=== PATIENT | male | born 1985 | race Caucasian/White ===

== ENCOUNTER 2018-04-17 17:57 | Emergency (ER) | payer SELFPAY ==
[2018-04-17 18:06] VITALS: BP 125/88
[2018-04-17] MEDS ORDERED: Acetaminophen/HYDROcodone 325-5 MG Tab PO ONE (18:47)
[2018-04-17] MEDS ORDERED: Lidocaine 1% 50 ML MDV INJECT ONE (18:48)
--- NOTE | 2018-04-17 19:21 | EDM.PDOC ---
ED HPI GENERAL MEDICAL PROBLEM - General Chief Complaint: Laceration Stated Complaint: FINGER LAC Time Seen by Provider: 04/17/18 18:37 Source of Information: Reports: Patient, RN Notes Reviewed - History of Present Illness INITIAL COMMENTS - FREE TEXT/NARRATIVE: Pt states he was sitting on a glass counter or display case, it broke, he fell, his only injury is glass lac to distal R small finger, moderate bleeding. Unsure of last tetanus. Treatments COURT ADMINISTRATOR: Reports: Dressing(s) right pinkie Pain Score (Numeric/FACES): 10 - Related Data Allergies Allergy/AdvReac Type Severity Reaction Status Date / Time sulfamethoxazole Allergy Paralysis Verified 04/17/18 18:06 [From Bactrim] trimethoprim [From Bactrim] Allergy Paralysis Verified 04/17/18 18:06 Home Meds: Home Meds ClonazePAM [KlonoPIN] 0.5 mg PO TID PRN 04/17/18 [History] Escitalopram [Lexapro] 10 mg PO DAILY 04/17/18 [History] Past Medical History - Past Health History Medical/Surgical History: Denies Medical/Surgical History Psychiatric History: Reports: Anxiety Social & Family History - Family History Family Medical History: Noncontributory - Tobacco Use Smoking Status *Q: Current Every Day Smoker Years of Tobacco use: 5 Packs/Tins Daily: 0.1 - Caffeine Use Caffeine Use: Reports: Tea - Recreational Drug Use Recreational Drug Use: No ED ROS GENERAL - Review of Systems Review Of Systems: See Below Constitutional: Reports: No Symptoms HEENT: Reports: No Symptoms Respiratory: Denies: Shortness of Breath Cardiovascular: Denies: Chest Pain GI/Abdominal: Denies: Abdominal Pain, Nausea, Vomiting Musculoskeletal: Reports: Joint Pain (distal small finger), Other (lac injury distal R small finger) Neurological: Reports: Numbness (distal tip of finger is numb on the side of the lac injury) ED EXAM, SKIN/RASH Exam: See Below General Appearance: Alert, Anxious Head: Atraumatic Neck: Supple Respiratory/Chest: No Respiratory Distress Extremities: Other (3 cm curved flap laceration ulnar aspect distal small finger , moderately deep, localized swelling, no glass visible or palpable) Neurological: Alert, Other (no motor deficit) Skin: Warm, Dry, Normal Color ED SKIN PROCEDURES - Laceration/Wound Repair Right Distal Digit - 5th (Baby) Lac/Wound length In cm: 3 Appearance: Other (Curved flat configuration, 3 cm total length) Anesthetic Type: Local Local Anesthesia - Lidocaine (Xylocaine): 1% Plain Exploration/Debridement/Repair: Wound Explored Suture Size: 3-0 # of Sutures: 10 Course - Vital Signs Last Recorded V/S: Last Vital Signs Temp 97.7 F 04/17/18 18:03 Pulse 108 H 04/17/18 18:03 Resp 18 04/17/18 18:03 BP 125/88 04/17/18 18:03 Pulse Ox 98 04/17/18 18:03 - Orders/Labs/Meds Meds: Medications Discontinued Medications Generic Name Dose Route Start Last Admin Trade Name Freq PRN Reason Stop Dose Admin Hydrocodone Bitart/Acetaminophen 1 tab 04/17/18 18:47 04/17/18 19:03 [place] 325-5 Mg PO 04/17/18 18:48 1 tab ONETIME ONE Administration Lidocaine HCl 50 ml 04/17/18 18:48 04/17/18 19:04 Xylocaine 1% INJECT 04/17/18 18:49 50 ml ONETIME ONE Administration - Re-Assessments/Exams Free Text/Narrative Re-Assessment/Exam: 04/17/18 20:12 X-rays of finger do not show any fracture or visible foreign body Departure - Departure Time of Disposition: 19:20 Disposition: Home, Self-Care 01 Preliminary Cause of *Q: Sepsis & Multi System Organ Failure Clinical Impression: Finger laceration Qualifiers: Encounter type: initial encounter Finger: little finger Damage to nail status: unspecified Foreign body presence: without foreign body Laterality: right Qualified Code(s): S61.216A - Laceration without foreign body of right little finger without damage to nail, initial encounter - Discharge Information Instructions: Laceration Care, Adult Referrals: PCP,None [Primary Care Provider] - Forms: ED Department Discharge Additional Instructions: Laceration care instructions, stitches out in about 10 days, have rechecked any sign of infection, if you choose to have these taken out at her [facility] medical clinic call [phone] for appointment
--- NOTE | 2018-04-18 07:58 | CR ---
Right hand: Three views of the right hand were obtained. Comparison: No prior hand exam. Fingers are held in flexion slightly limiting interpretation. Old ununited fracture is noted within the tip of the ulnar styloid process. Joint spaces are preserved. No discrete fracture, dislocation or other bony abnormality is seen. Impression: 1. Slightly limited study as noted above. Nothing acute is definitely appreciated. Diagnostic code #2
== END 2018-04-17 20:24 | disposition home or self-care (01) ==
LOC: JD.ED 17:57
DX: S61.216A Laceration without foreign body of right little finger without damage to nail, initial encounter (principal); F41.9 Anxiety disorder, unspecified; F17.290 Nicotine dependence, other tobacco product, uncomplicated; Z79.899 Other long term (current) drug therapy; Z88.2 Allergy status to sulfonamides; Z88.8 Allergy status to other drugs, medicaments and biological substances; W18.02XA Striking against glass with subsequent fall, initial encounter; Y92.89 Other specified places as the place of occurrence of the external cause
CPT/HCPCS: 12002; 73130; 99283; A9270

== ENCOUNTER 2018-07-09 12:52 | Emergency (ER) | payer SELFPAY ==
[2018-07-09 13:01] VITALS: BP 122/87
[2018-07-09] MEDS ORDERED: Metoclopramide 10 MG/2 ML SDV IVPUSH ONE (13:14)
[2018-07-09] MEDS ORDERED: HYDROmorphone 1 MG/ML Syringe IVPUSH ONE (13:14)
[2018-07-09] MEDS ORDERED: Sodium Chloride 0.9% 1,000 ML IV SCH (13:15)
[2018-07-09] MEDS ORDERED: Ketorolac 30 MG/ML SDV IVPUSH ONE (13:15)
--- NOTE | 2018-07-09 13:19 | EDM.PDOC ---
ED HPI GENERAL MEDICAL PROBLEM - General Chief Complaint: Genitourinary Problem Stated Complaint: POSSIBLE KIDNEY STONE Time Seen by Provider: 07/09/18 13:14 Source of Information: Reports: Patient History Limitations: Reports: No Limitations - History of Present Illness INITIAL COMMENTS - FREE TEXT/NARRATIVE: 33-year-old male presents to the ED with acute onset of severe right flank pain that awoke him from sleep about 2-1/2 hours ago. Associated nausea without vomiting. Patient has a history of kidney stones last one was maybe 3 years ago. The right side was affected. Current pain is mostly in his right flank and is slightly coming into the right upper quadrant of the abdomen. No radiation down to the groin or testicle. Pain is constant with a colicky component. Pain is 10 out of 10. He is diaphoretic from the severity of the pain. Onset: Today Onset Date: 07/09/18 Onset Time: 11:00 Duration: Hour(s): Location: Reports: Back Quality: Reports: Ache (Severe right flank pain with associated nausea), Pressure, Throbbing, Other (Colicky component to the pain) Severity: Severe Improves with: Reports: None (10 out of 10) Worsens with: Reports: None Context: Reports: Other (Past history of renal lithiasis.). Denies: Activity, Exercise (No position is comfortable), Lifting, Sick Contact, Trauma Associated Symptoms: Reports: Diaphoresis (Nausea without vomiting), Nausea/ Vomiting, Other Treatments MEDICAL ART THERAPIST: Reports: Other (see below) (Feeling of need to void but unable to do so) Right Flank Pain Score (Numeric/FACES): 8 - Related Data Allergies Allergy/AdvReac Type Severity Reaction Status Date / Time sulfamethoxazole Allergy Paralysis Verified 07/09/18 12:57 [From Bactrim] trimethoprim [From Bactrim] Allergy Paralysis Verified 07/09/18 12:57 Home Meds: Home Meds Ondansetron [Zofran] 4 mg BUCCAL Q6H PRN #5 tab 07/09/18 [Rx] oxyCODONE HCl/Acetaminophen [Percocet 5-325 mg Tablet] 1 - 2 each PO Q4H PRN # 12 tablet 07/09/18 [Rx] Past Medical History - Past Health History Medical/Surgical History: Denies Medical/Surgical History Genitourinary History: Reports: Renal Calculus (On of these 2 previous occasions ) Psychiatric History: Reports: Anxiety Social & Family History - Family History Family Medical History: Noncontributory - Caffeine Use Caffeine Use: Reports: Tea - Living Situation & Occupation Living situation: Reports: Single Occupation: Employed (Self-employed) ED ROS GENERAL - Review of Systems Review Of Systems: See Below Constitutional: Reports: Diaphoresis, Decreased Appetite. Denies: Fever, Chills , Malaise, Weakness, Fatigue, Weight Loss HEENT: Reports: No Symptoms Respiratory: Reports: No Symptoms Cardiovascular: Reports: No Symptoms Endocrine: Reports: No Symptoms GI/Abdominal: Reports: Nausea. Denies: Vomiting : Reports: Other (Urine was a little darker this morning. Could tell if there was blood or not) Musculoskeletal: Reports: Back Pain (Severe right flank pain) Skin: Reports: No Symptoms Neurological: Reports: No Symptoms Psychiatric: Reports: No Symptoms Hematologic/Lymphatic: Reports: No Symptoms Immunologic: Reports: No Symptoms ED EXAM, RENAL/ - Physical Exam Exam: See Below Exam Limited By: No Limitations General Appearance: Alert, WD/WN, Severe Distress (He is writhing back and forth on the bed due to the severity of the pain.) Eye Exam: Bilateral Eye: Normal Inspection Throat/Mouth: Normal Inspection, Normal Lips, Other Neck: Normal Inspection, Supple, Non-Tender, Full Range of Motion. No: Lymphadenopathy (L), Lymphadenopathy (R) Respiratory/Chest: Lungs Clear, Normal Breath Sounds, No Accessory Muscle Use, Respiratory Distress Cardiovascular: Normal Peripheral Pulses, Regular Rate, Rhythm, No Edema, No Gallop, No Murmur, No Rub GI/Abdominal: Tender, Abnormal Bowel Sounds (Bowel sounds are absent.). No: Guarding, Rigid (Tender to deep palpation right upper quadrant of the abdomen. No rebound or guarding), Rebound Back Exam: CVA Tenderness (R). No: CVA Tenderness (L) (Mild) Extremities: Normal Inspection, Normal Range of Motion, Non-Tender, No Pedal Edema Neurological: Alert, Oriented, CN II-XII Intact, Normal Cognition Psychiatric: Other Skin Exam: Cool, Diaphoretic Course - Vital Signs Last Recorded V/S: Last Vital Signs Temp Pulse 87 07/09/18 12:57 Resp 19 07/09/18 12:57 BP 122/87 07/09/18 12:57 Pulse Ox 100 04/06/19 12:57 - Orders/Labs/Meds Orders: Active Orders 24 hr Category Date Time Status URINALYSIS W/MICROSCOPIC [UA W/MICROSCOPIC] [URIN] Stat Lab 07/09/18 13:15 Ordered Meds: Medications Discontinued Medications Generic Name Dose Route Start Last Admin Trade Name [place] PRN Reason Stop Dose Admin Hydromorphone HCl 1 mg 07/09/18 13:14 07/09/18 13:20 Dilaudid IVPUSH 07/09/18 13:15 1 mg ONETIME ONE Administration Sodium Chloride 1,000 mls @ 150 mls/hr 07/09/18 13:15 07/09/18 13:20 Normal Saline IV 150 mls/hr ASDIRECTED ABDOUL Administration Ketorolac Tromethamine 30 mg 07/09/18 13:15 07/09/18 13:21 Toradol IVPUSH 07/09/18 13:16 30 mg ONETIME ONE Administration Metoclopramide HCl 10 mg 07/09/18 13:14 07/09/18 13:21 Reglan IVPUSH 07/09/18 13:15 10 mg ONETIME ONE Administration - Radiology Interpretation Free Text/Narrative:: 33-year-old male presents to the ED with acute onset of severe right flank pain waking him from sleep about 2-1/2 hours ago. Associated nausea. Pain is 10 out of 10 with a strong colicky component. Patient has a history of renal lithiasis last attack was about 2 years ago. Currently has pain in the right costal phrenic area. Mild pain right upper quadrant of the evidence suggesting the stone is large and likely quite proximal in the ureter. Plan IV normal saline at 150 mils per hour. Given Dilaudid 1 mg IV with Reglan 10 mg IV and Toradol 30 mg IV for pain relief. He will have a urinalysis collected when he can. He will have CT of the abdomen performed per renal protocol - Re-Assessments/Exams Free Text/Narrative Re-Assessment/Exam: 07/09/18 14:25 patient reports his pain is down to 1 or fairly there compared to what it was. He has not been able to void since in the ED. CT the abdomen confirms the problem with a 4 mm stone at the distal ureter on the right side at the UPJ. It has partially 3 cores of and is to travel before it enters urinary bladder. He has a very small stones embedded within the right kidney tissue approximate 0.5 mm and too small stones about 0.5 mm each embedded in the left renal parenchyma. The liver appears to be normal gallbladder shows no evidence of S5 gallstones. Pancreas appears normal. Both kidneys do not reveal any significant hydronephrosis. He does have a hydroureter on the right side down to the level of the stone in the UVJ. Small amount of stool throughout the colon. No hernias identified plan he will be discharged to home to strain his urine until stone is known to past. Discharged on Percocet tabs 5/325 one or 2 every 4-6 hours needed for pain relief 12 tablets. Zofran 4 mg sublingual every 4-6 hours needed for relief of nausea or vomiting. He'll return if he develops any fever chills nausea vomiting or can keep down his pain medications. Departure - Departure Time of Disposition: 14:19 Disposition: Home, Self-Care 01 Condition: Fair Clinical Impression: Renal colic on right side - Discharge Information *PRESCRIPTION DRUG MONITORING PROGRAM REVIEWED*: Not Applicable *COPY OF PRESCRIPTION DRUG MONITORING REPORT IN PATIENT DEJA: Not Applicable Prescriptions: Ondansetron [Zofran] 4 mg BUCCAL Q6H PRN #5 tab PRN Reason: nausea or vomiting oxyCODONE HCl/Acetaminophen [Percocet 5-325 mg Tablet] 1 - 2 each PO Q4H PRN # 12 tablet PRN Reason: pain relief/kidney stone Instructions: Kidney Stones, [id number], Renal Colic Referrals: PCP,None [Primary Care Provider] - Forms: ED Department Discharge Additional Instructions: Evaluation the emergency room today in regards to acute onset of severe right flank pain with slight radiation into the right upper abdomen about 2-1/2 hours before coming to the ED. History of previous kidney stone problems. History and exam were compatible with recurrent renal colic. You're treated with intravenous fluids and given Dilaudid 1 mg IV with Reglan 10 mg IV and Toradol 30 mg IV for acute pain relief. CT scan of the abdomen done per renal protocol which means no dye reveals that there is a 4 mm stone in the very lower portion of the right ureter that has caused her current right-sided flank and abdominal pain. The stone has approximately three quarters of days to pass anterior bladder at which time he would be pain free. You never know how long this is going to take but often doesn't within the next 48-72 hours. Small stone in the tissue of the right kidney and 2 small stones in the left kidney tissue that may become problematic in the future at this point time they are very small 0.5 mm. Treatment at home is plenty of fluids. Percocet tablets 5/325 mg one or 2 every 4-6 hours needed for pain relief. Zofran 4 mg under the tongue every 4-6 hours needed for relief of any nausea vomiting precipitated by stone pain or the pain medicine itself. ER if he continued to vomit or pain is not controlled. Screening urine until stone is identified to the past. Not need to be brought in for analysis. Is to be no calcium added diet and minimal soda pop if possible. The polyp contains high amounts of oxalate crystals. - My Orders Last 24 Hours: My Active Orders 07/09/18 13:15 URINALYSIS W/MICROSCOPIC [UA W/MICROSCOPIC] [URIN] Stat - Assessment/Plan Last 24 Hours: My Active Orders 07/09/18 13:15 URINALYSIS W/MICROSCOPIC [UA W/MICROSCOPIC] [URIN] Stat
--- NOTE | 2018-07-09 14:00 | CT ---
CT abdomen and pelvis Technique: Multiple axial sections were obtained from above the dome of the diaphragm inferiorly through the pubic symphysis. Intravenous and oral contrast was not utilized. Study has been performed as a ureteral stone protocol. Comparison: No prior abdominal CT or pelvis exam, previous abdominal x-ray of 07/20/14 is available. Findings: Mild right-sided hydronephrosis is seen with dilated ureter down to the UVJ. This hydronephrosis is caused by an obstructing stone within the distal right ureter measuring approximately 4 mm located near the UVJ. No other abnormal calcifications are seen along the course of the ureters. 2 small nonobstructing calculi are seen within the left kidney. One small nonobstructing calculus is noted within the right kidney. These calcifications measure less than 5 mm. Other findings: Small portion of the visualized lung bases shows nothing acute. Noncontrast appearance of the liver and spleen appears within normal limits. Adrenal glands show no nodule. Pancreas shows no discrete abnormality. Gallbladder contains no calcified gallstones. Aorta shows no aneurysm. No retroperitoneal adenopathy is seen. Appendix is seen and is normal in size. No mesenteric abnormalities are seen. No pelvic mass or adenopathy is noted. No free fluid or inflammatory change is seen. Bone window settings were reviewed which appear within normal limits for the patient's age. Impression: 1. Mild right-sided hydronephrosis caused by an obstructing stone within the distal right ureter located near the UVJ. This stone measures approximately 4 mm. 2. Small nonobstructing calculi within both kidneys as noted above. 3. No additional abnormality is seen on noncontrast CT study of the abdomen and pelvis performed as a ureteral stone protocol. Diagnostic code #3
== END 2018-07-09 14:40 | disposition home or self-care (01) ==
LOC: JD.ED 12:52
DX: N13.2 Hydronephrosis with renal and ureteral calculous obstruction (principal); Z88.2 Allergy status to sulfonamides
CPT/HCPCS: 74176; 96361; 96374; 96375; 99284; J1170; J1885; J2765; J7040